=== PATIENT | male | born 1945 | race Caucasian/White ===

== ENCOUNTER 2019-03-22 10:38 | Outpatient (CLI) | payer MEDICARE, OTHER | END 2019-03-22 23:59 | disposition home or self-care (01) | LOC: CVU 10:38 | PROVIDERS: ATTEND Internal Medicine Cardiovascular Disease | DX: I08.3 Combined rheumatic disorders of mitral, aortic and tricuspid valves (principal) | CPT/HCPCS: 93306; 93356 ==